=== PATIENT | female | born 1995 | race Caucasian/White ===

== ENCOUNTER 2021-03-13 10:55 | Inpatient (IN) | payer OTHER ==
[2021-03-13] MEDS ORDERED: ELECTROLYTE-148 SOLN 1,000 ML IV SCH ×2 (11:00→11:30)
[2021-03-13] MEDS ORDERED: CITRIC ACID/SODIUM CITRATE 30 ML UNIT-DOSE CUP PO ONE (11:00)
[2021-03-13 12:23] LABS: BASO % 0.3 % (0-2.0); EOS % 0.8 % (0-4.5); HEMATOCRIT 29.9 % (32.4-45.2); HEMOGLOBIN 9.8 GM/dL (10.7-15.3); LYMPH % 17.6 % (8-40); MCH 23.7 pg (25.7-33.7); MCHC 32.7 g/dl (32.0-36.0); MEAN CELL VOLUME 72.5 fl (80-96); MEAN PLT VOLUME 8.2 fl (7.5-11.1); MONO % 5.5 % (3.8-10.2); NEUT % 75.8 % (42.8-82.8); PLATELET COUNT 276 K/MM3 (134-434); RBC 4.12 M/mm3 (3.60-5.2); RDW 15.3 % (11.6-15.6); WHITE BLOOD COUNT 10.8 K/mm3 (4.0-10.0)
[2021-03-13 12:32] LABS: INR 1.03 (0.83-1.09); PROTHROMBIN TIME (PATIENT) 12.7 SEC (9.7-13.0)
[2021-03-13 12:35] LABS: ACTIVATED PTT 29.4 SECONDS (25.2-36.5)
[2021-03-13 12:43] LABS: BLOOD UREA NITROGEN 9.4 mg/dL (7-18)
[2021-03-13 12:46] LABS: CREATININE 0.5 mg/dL (0.55-1.3)
[2021-03-13 13:06] VITALS: BMI 37.0
[2021-03-13] MEDS ORDERED: ELECTROLYTE-148 SOLN 500 ML IV ONE (13:23)
[2021-03-13] MEDS ORDERED: morphine SULFATE/PF 0.5 MG/ML (2cc Syringe - QUVA) ONE (13:25)
[2021-03-13 13:47] LABS: HIV INTERPRETATION NEGATIVE (NEGATIVE)
[2021-03-13] MEDS: ELECTROLYTE-148 SOLN 1,000 ML IV SCH (14:21)
[2021-03-13] MEDS ORDERED: ONDANSETRON 4 MG/2 ML VIAL ONE ×2 (14:49→16:14)
[2021-03-13] MEDS ORDERED: KETOROLAC TROMETHAMINE 30 MG/1 ML VIAL ONE (14:49)
[2021-03-13] MEDS ORDERED: ceFAZolin SODIUM 1 GM VIAL ONE (14:49)
[2021-03-13] MEDS ORDERED: OXYTOCIN 10 UNITS/ML VIAL ONE (14:49)
[2021-03-13] MEDS ORDERED: DEXAMETHASONE SOD PHOSPHATE 4 MG/1 ML VIAL ONE (14:49)
[2021-03-13] MEDS ORDERED: GLYCOPYRROLATE 0.2 MG/1 ML VIAL ONE (14:49)
[2021-03-13] MEDS ORDERED: IBUPROFEN 800 MG/8 ML IJ IVPB PRN (15:16)
[2021-03-13] MEDS ORDERED: IBUPROFEN 600 MG TABLET (FP) PO PRN (15:16)
[2021-03-13] MEDS ORDERED: METHYLERGONOVINE MALEATE 0.2 MG/1 ML AMP IM PRN (15:16)
[2021-03-13] MEDS ORDERED: SENNOSIDES/DOCUSATE COMBO (SENNA PLUS) TABLET (UD) PO PRN (15:16)
[2021-03-13] MEDS ORDERED: ACETAMINOPHEN 325 MG TABLET (FP) PO PRN (15:16)
[2021-03-13] MEDS ORDERED: oxyCODONE HCL 5 MG TABLET PO PRN ×2 (15:16)
[2021-03-13] MEDS ORDERED: ONDANSETRON 4 MG/2 ML VIAL IVPUSH PRN (15:17)
[2021-03-13] MEDS ORDERED: morphine SULFATE/PF 0.5 MG/ML (2cc Syringe - QUVA) EP ONE (15:17)
[2021-03-13] MEDS: OXYTOCIN 20 UNITS in 0.9% NS 20 UNIT/1,000 ML INFUS.BAG IV SCH (20:55)
[2021-03-14 07:39] LABS: BASO % 0.2 % (0-2.0); EOS % 0.5 % (0-4.5); HEMATOCRIT 25.7 % (32.4-45.2); HEMOGLOBIN 8.1 GM/dL (10.7-15.3); LYMPH % 20.4 % (8-40); MCHC 31.5 g/dl (32.0-36.0); MEAN CELL VOLUME 73.1 fl (80-96); MEAN PLT VOLUME 8.2 fl (7.5-11.1); MONO % 6.4 % (3.8-10.2); NEUT % 72.5 % (42.8-82.8); PLATELET COUNT 232 K/MM3 (134-434); RBC 3.52 M/mm3 (3.60-5.2); RDW 15.8 % (11.6-15.6); WHITE BLOOD COUNT 12.8 K/mm3 (4.0-10.0)
[2021-03-14] MEDS: ACETAMINOPHEN 325 MG TABLET (FP) PO PRN ×3 (09:35→20:08)
[2021-03-14] MEDS: SIMETHICONE 80 MG TAB.CHEW (FP) PO PRN ×3 (09:35→20:08)
[2021-03-14] MEDS: IBUPROFEN 600 MG TABLET (FP) PO PRN ×3 (09:36→20:08)
[2021-03-14] MEDS: PRENATAL VITAMINS W/ FOLIC ACID TABLET (FP) PO SCH (09:37)
[2021-03-14] MEDS ORDERED: BISACODYL 10 MG SUPP.RECT RC PRN (15:16)
[2021-03-15] MEDS: IBUPROFEN 600 MG TABLET (FP) PO PRN ×2 (00:09→08:30)
[2021-03-15] MEDS: ACETAMINOPHEN 325 MG TABLET (FP) PO PRN (00:10)
[2021-03-15] MEDS: PRENATAL VITAMINS W/ FOLIC ACID TABLET (FP) PO SCH (09:15)
[2021-03-15 11:38] VITALS: BP 110/62; PULSE 91; TEMP 98
[2021-03-15] MEDS: OXYTOCIN 20 UNITS in 0.9% NS 20 UNIT/1,000 ML INFUS.BAG IV SCH (13:13)
[2021-03-15] MEDS: ELECTROLYTE-148 SOLN 1,000 ML IV SCH (13:13)
== END 2021-03-15 13:10 | disposition home or self-care (01) | DRG 540 ==
LOC: JLDR 10:55 → J3W 16:52
PROVIDERS: ADMIT Obstetrics & Gynecology; ATTEND Obstetrics & Gynecology
PROC: 10D00Z1 Extraction of Products of Conception, Low, Open Approach (ICD-10-PCS; principal; 2021-03-13)
DX: O34.211 Maternal care for low transverse scar from previous cesarean delivery (principal); O69.89X0 Labor and delivery complicated by other cord complications, not applicable or unspecified; O99.824 Streptococcus B carrier state complicating childbirth; Z3A.39 39 weeks gestation of pregnancy; Z37.0 Single live birth
CPT/HCPCS: 36415; 80048; 85025; 85610; 85730; 86780; 86850; 86900; 86901; 87389; 88307-TC

== ENCOUNTER 2024-06-28 06:00 | Inpatient (IN) | payer OTHER ==
[2024-06-28] MEDS: ELECTROLYTE-148 SOLN 500 ML IV ONE (06:25)
[2024-06-28 06:32] VITALS: BMI 47.2
[2024-06-28] MEDS: ELECTROLYTE-148 SOLN 1,000 ML IV SCH ×2 (07:05→08:59)
[2024-06-28] MEDS ORDERED: morphine SULFATE/PF 1 MG/2 ML (2cc Syringe - QUVA) ONE (07:40)
[2024-06-28] MEDS ORDERED: FENTANYL CITRATE/PF 50 MCG/ML VIAL ONE (07:40)
[2024-06-28] MEDS ORDERED: PHENYLEPHRINE HCL 10 MG/1 ML SINGLE DOSE VIAL ONE (07:47)
[2024-06-28] MEDS ORDERED: METOCLOPRAMIDE HCL INJECTION 10 MG/2 ML VIAL ONE (07:47)
[2024-06-28] MEDS ORDERED: ONDANSETRON 4 MG/2 ML VIAL ONE (07:47)
[2024-06-28] MEDS ORDERED: DEXAMETHASONE SOD PHOSPHATE 4 MG/1 ML VIAL ONE (07:47)
[2024-06-28] MEDS: CITRIC ACID/SODIUM CITRATE 30 ML UNIT-DOSE CUP PO ONE (08:07)
[2024-06-28] MEDS ORDERED: OXYTOCIN 10 UNITS/ML VIAL ONE (08:30)
[2024-06-28] MEDS: OXYTOCIN 20 UNITS in 0.9% NS 20 UNIT/1,000 ML INFUS.BAG IV SCH (09:35)
[2024-06-28] MEDS ORDERED: OXYTOCIN 20 UNITS in 0.9% NS 20 UNIT/1,000 ML INFUS.BAG IV ONE ×2 (09:37→16:53)
[2024-06-28] MEDS ORDERED: METHYLERGONOVINE MALEATE 0.2 MG/1 ML AMP IM PRN (10:08)
[2024-06-28] MEDS ORDERED: ACETAMINOPHEN 325 MG TABLET (FP) PO PRN (10:08)
[2024-06-28] MEDS: ONDANSETRON 4 MG/2 ML VIAL IVPUSH PRN (12:26)
[2024-06-28] MEDS: IBUPROFEN 800 MG/8 ML IJ IVPB PRN (17:09)
[2024-06-28] MEDS ORDERED: oxyCODONE HCL 5 MG TABLET PO PRN (22:08)
[2024-06-29] MEDS: ACETAMINOPHEN 1000 MG/100 ML BAG IVPB PRN (00:56)
[2024-06-29] MEDS: IBUPROFEN 600 MG TABLET (FP) PO PRN ×2 (04:41→11:15)
[2024-06-29] MEDS: SIMETHICONE 80 MG TAB.CHEW (FP) PO PRN (04:42)
[2024-06-29 06:12] LABS: BASO % 0.4 % (0-2.0); EOS % 0.9 % (0-4.5); HEMATOCRIT 36.4 % (32.4-45.2); HEMOGLOBIN 11.9 GM/dL (10.7-15.3); LYMPH % 16.4 % (8-40); MCHC 32.7 g/dl (32.0-36.0); MEAN CELL VOLUME 88.7 fl (80-96); MEAN PLT VOLUME 9.7 fl (7.5-11.1); MONO % 5.5 % (3.8-10.2); NEUT % 76.8 % (42.8-82.8); PLATELET COUNT 163 10^3/uL (134-434); RDW 14.2 % (11.6-15.6)
[2024-06-29] MEDS: ACETAMINOPHEN 325 MG TABLET (FP) PO PRN (07:13)
[2024-06-29] MEDS: PRENATAL VITAMINS W/ FOLIC ACID TABLET (FP) PO SCH (09:27)
[2024-06-29] MEDS: FERROUS SO4 325 MG TABLET (FP) PO SCH (09:27)
[2024-06-29] MEDS ORDERED: BISACODYL 10 MG SUPP.RECT RC PRN (10:08)
[2024-06-29] MEDS: SENNOSIDES/DOCUSATE COMBO (SENNA PLUS) TABLET (UD) PO PRN (19:36)
[2024-06-29] MEDS: oxyCODONE HCL 5 MG TABLET PO PRN (20:49)
[2024-06-29 21:44] VITALS: PULSE 86
[2024-06-30 14:05] VITALS: BP 124/80; RESP 18; TEMP 98
== END 2024-06-30 13:20 | disposition home or self-care (01) | DRG 785 ==
LOC: JLDR 06:00 → J3W 12:15
PROVIDERS: ADMIT Obstetrics & Gynecology; ATTEND Obstetrics & Gynecology
PROC: 10D00Z1 Extraction of Products of Conception, Low, Open Approach (ICD-10-PCS; principal; 2024-06-28)
PROC: 0UB70ZZ Excision of Bilateral Fallopian Tubes, Open Approach (ICD-10-PCS; 2024-06-28)
DX: O34.211 Maternal care for low transverse scar from previous cesarean delivery (principal); N85.8 Other specified noninflammatory disorders of uterus; Z3A.39 39 weeks gestation of pregnancy; Z30.2 Encounter for sterilization; Z37.0 Single live birth
CPT/HCPCS: 36415; 59409; 85025; 88305-TC; 88307-TC; 94010; J0131